=== PATIENT | male | born 1985 | race Two or more races ===

== ENCOUNTER 2021-09-23 18:16 | Inpatient (IN) | payer OTHER ==
[~2021-09-23] VITALS: Ht 165.1 cm; Wt 46.2 kg
[2021-09-23 18:58] LABS: BASOPHILS % (AUTO) 1.1 % (0.0-2.0); EOSINOPHILS % (AUTO) 0.2 % (1.0-6.0); HEMATOCRIT 45.9 % (41-53); HEMOGLOBIN 15.6 g/dL (13.5-17.5); LYMPHOCYTES # (AUTO) 1.3 K/uL (1.0-4.8); LYMPHOCYTES % (AUTO) 27.1 % (22.0-44.0); MEAN CORPUSCULAR HEMOGLOBIN 30.3 pg (26.0-34.0); MEAN CORPUSCULAR HGB CONC 33.9 G/dL (31.0-37.0); MEAN CORPUSCULAR VOLUME 89 fL (80-100); MONOCYTES # (AUTO) 0.5 K/uL (0.1-1.0); MONOCYTES % (AUTO) 11.2 % (2.0-9.0); NEUTROPHILS # (AUTO) 2.8 K/uL (1.8-7.7); NEUTROPHILS % (AUTO) 60.4 % (40.0-70.0); PLATELET COUNT (AUTO) 308 K/uL (150-450); RED BLOOD CELL COUNT(AUTO) 5.15 MIL/uL (4.50-5.90); RED CELL DISTRIBUTION WIDTH 13.2 % (11.5-14.5)
[2021-09-23 19:06] LABS: ANION GAP 10 mmol/L (8-16); CALCIUM, TOTAL 9.4 mg/dL (8.8-10.5); CARBON DIOXIDE 27 mmol/L (22-29); CHLORIDE 102 mmol/L (98-107); CREATININE 0.61 mg/dL (0.60-1.30); GLOMERULAR FILTR. RATE CALC > 60 mL/min (>60); GLUCOSE,RANDOM 92 mg/dL (70-110); POTASSIUM 4.1 mmol/L (3.5-5.1); SODIUM SERUM 139 mmol/L (136-145); UREA NITROGEN, BLOOD 17 mg/dL (7-18)
[2021-09-23 19:13] LABS: ALANINE AMINOTRANSFERASE 34 U/L (12-78); ALBUMIN 4.1 g/dL (3.4-5.0); ALKALINE PHOSPHATASE 92 U/L (46-116); ASPARTATE AMINOTRANSFERASE 19 U/L (15-37); BILIRUBIN,TOTAL 0.7 mg/dL (0.1-1.0); TOTAL PROTEIN, SERUM 8.4 g/dL (6.4-8.2)
[2021-09-23] MEDS ORDERED: ONDANSETRON HCL 4 MG/2 ML VIAL IVP PRN (20:15)
[2021-09-23] MEDS ORDERED: MAGNESIUM HYDROXIDE SUSPENSION 30 ML UDCUP PO PRN (20:15)
[2021-09-23] MEDS ORDERED: OxyCODONE HCL/ACETAMINOPHEN 5-325 MG TABLET PO PRN (20:15)
[2021-09-23 20:24] LABS: COVID AG,FIA SOURCE NASOPHARYNGEAL
[2021-09-23 21:30] VITALS: BP 122/74
[2021-09-23 22:00] VITALS: BP 125/75
[2021-09-24] VITALS (9 sets, daily range): BP systolic 99–125; BP diastolic 63–75
[2021-09-24] MEDS: HEPARIN SODIUM,PORCINE 5,000 UNITS/ML VIAL SQ SCH ×4 (00:13→23:06)
[2021-09-24] MEDS: DOCUSATE SODIUM 100 MG CAPSULE PO SCH ×3 (00:14→20:33)
[2021-09-24] MEDS: ACETAMINOPHEN 325 MG TABLET PO PRN (10:27)
[2021-09-24] MEDS: ETHYL ALCOHOL 62% ANTISEPTIC NASAL INHALANT 0.6 ML AMPUL NASAL SCH ×2 (10:28→20:33)
[2021-09-24] MEDS: FAMOTIDINE 20 MG TABLET PO SCH (10:28)
[2021-09-24] MEDS ORDERED: SODIUM CHLORIDE 0.9% 100 ML ONE (14:14)
[2021-09-24] MEDS: GLY IV SCH (14:39)
[2021-09-24] MEDS: CONTAINER EMPTY IV SCH (14:39)
[2021-09-24] MEDS: IGA AVG IV SCH (14:39)
[2021-09-24] MEDS: IMMUNE GLOBUL IV SCH (14:39)
[2021-09-24] MEDS ORDERED: BISACODYL 10 MG RECTAL RECTAL SUPPOSITORY PR ONE (22:00)
[2021-09-24] MEDS: SENNA 187 MG TABLET PO SCH (23:06)
[2021-09-24] MEDS: POLYETHYLENE GLYCOL 3350 17 GM PACKET PO SCH (23:06)
[2021-09-25] VITALS (9 sets, daily range): BP systolic 102–127; BP diastolic 58–80
[2021-09-25] MEDS: POLYETHYLENE GLYCOL 3350 17 GM PACKET PO SCH ×2 (07:56→20:38)
[2021-09-25] MEDS: ETHYL ALCOHOL 62% ANTISEPTIC NASAL INHALANT 0.6 ML AMPUL NASAL SCH ×2 (07:56→20:38)
[2021-09-25] MEDS: DOCUSATE SODIUM 100 MG CAPSULE PO SCH ×2 (07:58→20:38)
[2021-09-25] MEDS: SENNA 187 MG TABLET PO SCH (07:58)
[2021-09-25] MEDS: HEPARIN SODIUM,PORCINE 5,000 UNITS/ML VIAL SQ SCH ×3 (07:59→23:32)
[2021-09-25] MEDS: FAMOTIDINE 20 MG TABLET PO SCH (07:59)
[2021-09-25] MEDS: CONTAINER EMPTY IV SCH (14:58)
[2021-09-25] MEDS: GLY IV SCH (14:58)
[2021-09-25] MEDS: IGA AVG IV SCH (14:58)
[2021-09-25] MEDS: IMMUNE GLOBUL IV SCH (14:58)
[2021-09-26 00:33] VITALS: BP 116/69
[2021-09-26 04:30] VITALS: BP 119/76
[2021-09-26 08:07] VITALS: BP 98/60
[2021-09-26] MEDS: ETHYL ALCOHOL 62% ANTISEPTIC NASAL INHALANT 0.6 ML AMPUL NASAL SCH ×2 (10:49→20:15)
[2021-09-26] MEDS: FAMOTIDINE 20 MG TABLET PO SCH (10:50)
[2021-09-26] MEDS: SENNA 187 MG TABLET PO SCH (10:50)
[2021-09-26] MEDS: POLYETHYLENE GLYCOL 3350 17 GM PACKET PO SCH ×2 (10:50→20:15)
[2021-09-26] MEDS: DOCUSATE SODIUM 100 MG CAPSULE PO SCH ×2 (10:50→20:15)
[2021-09-26] MEDS: HEPARIN SODIUM,PORCINE 5,000 UNITS/ML VIAL SQ SCH ×3 (10:51→23:20)
[2021-09-26 11:37] VITALS: BP 116/71
[2021-09-26 14:47] VITALS: BP 116/71
[2021-09-26] MEDS: IMMUNE GLOBUL IV SCH (15:15)
[2021-09-26] MEDS: GLY IV SCH (15:15)
[2021-09-26] MEDS: CONTAINER EMPTY IV SCH (15:15)
[2021-09-26] MEDS: IGA AVG IV SCH (15:15)
[2021-09-26 16:15] VITALS: BP 101/59
[2021-09-27 00:49] VITALS: BP 112/65
[2021-09-27 04:00] VITALS: BP 114/73
[2021-09-27] MEDS: FAMOTIDINE 20 MG TABLET PO SCH (08:46)
[2021-09-27] MEDS: SENNA 187 MG TABLET PO SCH (08:46)
[2021-09-27] MEDS: POLYETHYLENE GLYCOL 3350 17 GM PACKET PO SCH ×2 (08:47→20:02)
[2021-09-27] MEDS: HEPARIN SODIUM,PORCINE 5,000 UNITS/ML VIAL SQ SCH ×3 (08:47→23:57)
[2021-09-27] MEDS: DOCUSATE SODIUM 100 MG CAPSULE PO SCH ×2 (08:47→20:02)
[2021-09-27] MEDS: ETHYL ALCOHOL 62% ANTISEPTIC NASAL INHALANT 0.6 ML AMPUL NASAL SCH ×2 (08:49→20:02)
[2021-09-27 09:16] VITALS: BP 114/68
[2021-09-27 13:18] VITALS: BP 112/79
[2021-09-27] MEDS: GLY IV SCH (15:15)
[2021-09-27] MEDS: IGA AVG IV SCH (15:15)
[2021-09-27] MEDS: IMMUNE GLOBUL IV SCH (15:15)
[2021-09-27] MEDS: CONTAINER EMPTY IV SCH (15:15)
[2021-09-27 17:56] VITALS: BP 115/76
[2021-09-27] MEDS: ACETAMINOPHEN 325 MG TABLET PO PRN (20:19)
[2021-09-27 20:55] VITALS: BP 114/75
[2021-09-28 01:14] VITALS: BP 109/69
== END 2021-09-28 04:45 | disposition home or self-care (01) | DRG 96 ==
LOC: EMS 18:21 → ICU 21:00 → 5S 09-24 11:30
PROVIDERS: ADMIT Internal Medicine; ATTEND Internal Medicine
DX: G61.0 Guillain-Barre syndrome (principal); Z20.822 Contact with and (suspected) exposure to COVID-19; Z86.16 Personal history of COVID-19
CPT/HCPCS: 80053; 85025; 87081; 93005; 97110; 97116; 97162; 97167; 97530; 97535; 99285; G0378; J1459; J1644; J7050